=== PATIENT | female | born 1980 | race Caucasian/White ===

== ENCOUNTER 2018-02-23 08:43 | Day surgery (SDC) | payer SELFPAY ==
[2018-02-21 14:18] VITALS: BMI 24.9
[2018-02-23] MEDS ORDERED: MIDAZOLAM HCL 2 MG/2 ML SINGLE DOSE VIAL ONE (10:22)
[2018-02-23] MEDS ORDERED: ROCURONIUM BROMIDE 50 MG/5 ML VIAL ONE (10:22)
[2018-02-23] MEDS ORDERED: PROPOFOL 20 ML ONE (10:22)
[2018-02-23] MEDS ORDERED: LIDOCAINE HCL/PF 2% SDV 5ML VIAL ONE (10:22)
[2018-02-23] MEDS ORDERED: DEXAMETHASONE SOD PHOSPHATE 4 MG/1 ML VIAL ONE ×2 (10:22→13:37)
[2018-02-23] MEDS ORDERED: fentaNYL CITRATE 250 MCG/5 ML VIAL ONE (10:22)
[2018-02-23] MEDS ORDERED: BUPIVACAINE HCL/PF 0.5% (5MG/ML) 10 ML VIAL ONE (10:49)
[2018-02-23] MEDS ORDERED: LIDOCAINE HCL 1%, 10 MG/ML (20ML VIAL) ONE (10:49)
[2018-02-23] MEDS ORDERED: EPINEPHrine/PF 1 MG/1 ML (1:1,000) AMPULE ONE (10:49)
[2018-02-23] MEDS ORDERED: LIDOCAINE 1%/EPI 1:100000 (20 ML MULTI DOSE VIAL) ONE (10:49)
[2018-02-23] MEDS ORDERED: ceFAZolin SODIUM 1 GM VIAL IVPB ONE (10:50)
[2018-02-23] MEDS ORDERED: LIDOCAINE 1%/EPI 1:100000 (20 ML MULTI DOSE VIAL) IJ ONE ×2 (11:00)
[2018-02-23] MEDS ORDERED: BUPIVACAINE HCL/PF 0.5% (5MG/ML) 10 ML VIAL IJ ONE ×2 (11:00)
[2018-02-23] MEDS ORDERED: SCOPOLAMINE HYDROBROMIDE 1 PATCH PATCH.TD72 ONE (13:49)
[2018-02-23] MEDS ORDERED: DESFLURANE GAS 240 ML BOTTLE IH ONE (13:56)
[2018-02-23] MEDS ORDERED: NEOSTIGMINE METHYLSULFATE 0.5 MG/ML - 10 ML MDV ONE (14:11)
[2018-02-23] MEDS ORDERED: GLYCOPYRROLATE 0.2 MG/1 ML VIAL ONE (14:11)
[2018-02-23] MEDS ORDERED: MEPERIDINE HCL CARPU-JECT 25 MG/1 ML DISP.SYRIN ONE (14:44)
--- NOTE | 2018-02-23 14:47 | OP ---
Operative Note - Note: Operative Date: 02/23/18 Pre-Operative Diagnosis: Cosmetic Deformity of Breasts and capsular contracture Operation: Bilateral implant exchange,Placement of Galaflex mesh bilaterally. Liposuction of abdomen and flanks. Surgeon: Braydon Dawn Anesthesia: General Specimens Removed: skin and fat,implants Estimated Blood Loss (mls): 50 Drains & Tubes with Location: none
[2018-02-23] MEDS ORDERED: PROMETHAZINE HCL 25 MG/1 ML VIAL ONE (14:50)
[2018-02-23] MEDS ORDERED: oxyCODONE HCL 5 MG TABLET PO PRN (14:53)
[2018-02-23] MEDS ORDERED: PROMETHAZINE HCL 25 MG/1 ML VIAL IVPUSH PRN (14:53)
[2018-02-23] MEDS ORDERED: MEPERIDINE HCL CARPU-JECT 25 MG/1 ML DISP.SYRIN IVPUSH ONE (14:53)
[2018-02-23] MEDS ORDERED: LACTATED RINGERS SOLUTION 1,000 ML IV SCH (15:00)
[2018-02-23] MEDS ORDERED: ACETAMINOPHEN INJECTION 100 ML IVPB ONE (16:54)
[2018-02-23] MEDS ORDERED: ACETAMINOPHEN 1000 MG/100 ML VIAL (NON FORMULARY) IVPB ONE (17:01)
--- NOTE | 2018-02-23 17:16 | OP ---
DATE OF OPERATION: 02/23/2018 SURGEON: Shyanne Dawn MD ENGINEERING [facility] SURGEON: None. PREOPERATIVE DIAGNOSES: 1. Cosmetic deformity of breasts with asymmetry. 2. Bilateral capsular contracture of breast implants. 3. Lipodystrophy of abdomen and flanks. POSTOPERATIVE DIAGNOSES: 1. Cosmetic deformity of breasts with asymmetry. 2. Bilateral capsular contracture of breast implants. 3. Lipodystrophy of abdomen and flanks. OPERATIVE PROCEDURE: 1. Bilateral implant exchange. 2. Placement of GalaFLEX mesh for internal support. 3. Liposuction of abdomen and flanks. OPERATIVE INDICATION: Patient is a young woman who underwent previous breast augmentation and now presents with asymmetry of her breasts with large size, bottoming out of the implant, and capsular contracture. The patient desired smaller, shapelier size of implants and suction-assisted lipectomy of the abdomen and flanks. The risks and benefits of surgical versus nonsurgical alternatives as well as material complications were described to the patient on multiple occasions preoperatively. She agreed to the planned procedure. OPERATIVE PROCEDURE IN DETAIL: Patient was taken to the operating room, and after induction of general anesthesia in supine position, both arms were extended and padded. Venodyne boots were placed. The entire abdomen, flanks, hips, and thighs were prepped with ChloraPrep solution over their entire extent, and the markings, which had been made in the standing position preoperatively in the holding area with the patient's and 's knowledge, were outlined for the incisions. A circumareolar and vertical component of the breasts were marked as previous areolar mastopexy had been performed. All areas on the abdomen were also marked and measured. All questions were asked and answered. Patient was taken to the operating room, and after induction of the previous inducement, 1% local lidocaine anesthesia with 1:100,000 epinephrine with 50% Marcaine was injected in and around the nipple-areolar complexes, into the proposed areas of incisions, and into the lower abdominal scar from previous . At this point, dilute infiltrating solution with 50 mL of plain lidocaine and 1 mL of epinephrine in a liter of fluid was injected for suction-assisted lipectomy over the entire abdomen, flanks, and hips. At this point, using a number 42 nipple-areolar cutter, the nipples were circumscribed and de-epithelialized according to the patterns. A circumvertical tailor-tacking technique was used. The skin was removed in usual fashion, cauterized, and dissection was then carried down through the skin, through the subcutaneous tissue, down to the underlying breast implant capsule. Right breast implant capsule was opened using electrocautery, and then, the breast implant was removed and sent for pathologic diagnosis. The capsule itself was cauterized, and internal capsulorrhaphy was performed using the cautery. All wounds were copiously irrigated with Betadine and antibiotic solution, and then, GalaFLEX 3D mesh was brought onto the field sterilely. This was then tacked to the pectoralis major muscle in the subpectoral position after the capsule was shrunk to accept the new implant. The GalaFLEX was tacked into position in multiple locations using 2-0 PDS sutures in interrupted fashion, and then, the implant was chosen. A Natrelle Inspira SSM 335-mL implant was chosen for placement, after removing a 375-mL implant. This shape and contour was good, and the GalaFLEX was then sutured down to the inframammary fold, covering the bottom portion of the breasts, covering totally with the upper pole of the pectoralis muscle and lower pole with GalaFLEX in 3D fashion. Copious irrigation of the wounds was again performed, and then, advancement and closure was carried out using 2-0 PDS sutures in the deep tissue, 3-0 Biosyn in the deep dermal in breast repair fashion, and then, interrupted sutures were placed with SPAIR technique by tailor tacking the nipple-areolar complex and vertical component and then de-epithelializing the skin and closing it with 3 and 4-0 interrupted and running sutures. The exact same procedure was carried out symmetrically on the breasts on both sides, and the same implant was placed bilaterally and also with the GalaFLEX mesh. Good symmetry was seen in the sitting position. All wounds were dressed sterilely on the breasts with Dermabond and Steri-Strip dressings, and attention was turned to the abdomen. The abdomen was liposuctioned using the MicroAire device, removing approximately 800 mL of fatty material over the entire extent of the lower, upper, mid, and central portions of the abdomen, as well as the lateral flanks and hips. This material was collected and discarded. Good contour was seen on the abdomen on both sides, and good shape was seen in the turned position. All wounds were dressed sterilely with compression dressings and Tegaderm dressings. She tolerated the procedure well. She was awakened, extubated, and transferred to recovery room in a lower abdominal garment and Brazilian Sports Bra for compression. She tolerated the procedure well. SHYANNE DAWN M.D. [id number]
[2018-02-23 18:10] VITALS: BP 123/87; PULSE 94; TEMP 98.3
--- NOTE | 2018-02-27 13:33 | PATH ---
Surgical Pathology Report Patient Name: CARLA LITTLE Med. Rec. #: [id number] /Age/Gender: 1980 (Age: 37) / F Account: [id number] Location: [facility] SURGICAL Taken: 02/23/2018 Received: 02/26/2018 Reported: 02/27/2018 Physicians: Braydon Dawn Specimen(s) Received REMOVED IMPLANT BILATERAL BREAST Clinical History Cosmetic Final Diagnosis BREAST IMPLANTS, BILATERAL, REMOVAL: BREAST PROSTHESIS (2). MACROSCOPIC DIAGNOSIS. Electronically Signed Dhara Russo M.D. Gross Description Received fresh labeled "removed bilateral breast implants," are 2 clear, rubbery, intact breast implant averaging 12 cm in diameter and 4 cm in depth. No soft tissue is present. No sections are submitted, gross only. /02/26/2018 [facility]02/26/2018
== END 2018-02-23 18:20 | disposition home or self-care (01) ==
LOC: JASU-SURG 08:43
PROVIDERS: ATTEND Plastic Surgery
CPT/HCPCS: 84703; J0131